=== PATIENT | male | born 1955 | race Caucasian/White ===

== ENCOUNTER 2021-11-17 23:37 | Emergency (ER) | payer OTHER, MEDICARE, BC ==
[2021-11-18] MEDS ORDERED: Pantoprazole 40 MG Vial IVPUSH ONE (02:37)
[2021-11-18] MEDS ORDERED: Lactated Ringers 1,000 ML IV SCH (03:15)
[2021-11-18] MEDS ORDERED: Famotidine 20 MG/2 ML SDV IVPUSH ONE (03:54)
== END 2021-11-18 07:20 | disposition home or self-care (01) ==
LOC: JD.ED 23:37
DX: K92.2 Gastrointestinal hemorrhage, unspecified (principal); Z79.82 Long term (current) use of aspirin; Z79.899 Other long term (current) drug therapy
CPT/HCPCS: 36415; 80053; 85014; 85018; 85025; 85610; 86850; 86900; 86901; 96361; 96374; 96375; 99284; C9113; J3490; J7120; 99283

== ENCOUNTER 2021-11-18 13:01 | Emergency (ER) | payer OTHER, MEDICARE, BC ==
[2021-11-18] MEDS ORDERED: Pantoprazole 40 MG Vial IVPUSH ONE (14:32)
[2021-11-18] MEDS ORDERED: Sodium Chloride 0.9% 1,000 ML IV SCH (14:45)
[2021-11-18 14:49] LABS: ESTIMATED GFR 61 mL/min (>60)
== END 2021-11-18 19:30 ==
LOC: JD.ED 13:01
DX: K92.2 Gastrointestinal hemorrhage, unspecified (principal); Z79.899 Other long term (current) drug therapy; Z79.82 Long term (current) use of aspirin
CPT/HCPCS: 36415; 80053; 83735; 85025; 85610; 96361; 96374; 99285; C9113; J7030; 99283